=== PATIENT | female | born 1970 | race Caucasian/White ===

== ENCOUNTER → 2018-07-28 08:01 | Outpatient (CLI) | payer OTHER, SELFPAY ==
--- NOTE | 2018-07-28 08:08 | BI_ITS ---
MAMMOGRAPHY - BILATERAL SCREENING 3-D JAVY SYNTHESIS REASON FOR EXAM: Female, 48 years old. Bilateral Screening 3-D tomosynthesis PERTINENT HISTORY: Asymptomatic Family breast carcinoma, maternal grandmother? TECHNIQUE: 2-D mammograms and 3-D Javy synthesis of the breast (s) were performed. CAD was performed. COMPARISON: None available. FINDINGS: The breast composition is composed of scattered fibroglandular density. Scattered benign calcifications are seen. No dense spiculated dominant masses or suspicious microcalcification cluster are identified. No new architectural distortion, asymmetric density, discretion skin thickening or nipple retraction identified. Numerous axillary lymph nodes are seen bilaterally which are difficult to evaluate as many are superimposed upon one another. There has been no significant change since the most recent prior study. BI/SCREENING MAMM (CAD), BILAT IMPRESSION: No mammographic sign of malignancy. Routine yearly mammograms recommended. Numerous axillary lymph nodes are seen bilaterally but are difficult to evaluate as there is superimposed upon one another without definitive finding of adenopathy identified. Clinical correlation recommended. ASSESSMENT CATEGORY: BIRADS Category 2: Benign. A letter regarding these results will be sent to the patient by the facility within 30 days. FOLLOW UP RECOMMENDATION: Yearly follow up mammogram recommended. (A) Negative mammographic results should not deter biopsy as a palpable lesion should be followed based on clinical grounds and biopsy performed if clinically persistent for 3 months or increasing size. Approximately 10% of breast cancers are not detected by mammography. A normal mammogram should not delay biopsy of a clinically suspicious abnormality. Dense breast tissue may obscure neoplasm. Electronically Signed: Kenny Montero, at 17:38 EDT Tel , Service support ,
== END ==
PROVIDERS: Family Provider Internal Medicine; PCP Internal Medicine; Referring Provider Obstetrics & Gynecology; Visit Provider Obstetrics & Gynecology
DX: Z12.31 Encounter for screening mammogram for malignant neoplasm of breast (principal)
CPT/HCPCS: 77063; 77067

== ENCOUNTER → 2020-12-07 | Outpatient (CLI) | payer OTHER, SELFPAY ==
[2020-12-11 11:33] LABS: HPV APTIMA, High Risk Negative (Negative)
== END | disposition home or self-care (01) ==
LOC: LABSPEC 16:18
PROVIDERS: PCP Internal Medicine; Visit Provider Obstetrics & Gynecology
DX: Z12.4 Encounter for screening for malignant neoplasm of cervix (principal)
CPT/HCPCS: 87624; 88175; G0145

== ENCOUNTER → 2020-12-15 17:00 | Outpatient (CLI) | payer OTHER, SELFPAY ==
--- NOTE | 2020-12-15 16:09 | BI_ITS ---
MAMMOGRAPHY - BILATERAL SCREENING REASON FOR EXAM: Female, 50 years old. Routine annual screening examination. PERTINENT HISTORY: Grandmother with breast cancer. TECHNIQUE: Digital bilateral breast javy (3D mammographic acquisition) in the CC and MLO projections. 2-D mediolateral oblique (MLO) and craniocaudad (CC) views of both breasts were obtained. CAD: Full Field Digital Mammography with Computer Added Detection was performed. COMPARISON: Comparison is made with prior study dated 07/28/2018. FINDINGS: Breast Composition: There are scattered areas of fibroglandular density. There are no dominant masses or suspicious calcifications. Stable benign-appearing bilateral axillary lymph nodes. No other significant abnormalities are identified. There has been no significant change since the prior study. BI/SCRN MAMM (CAD)W/JAVY BILAT IMPRESSION: Stable bilateral screening mammogram. Yearly follow-up mammogram recommended. (A) ASSESSMENT CATEGORY: BIRADS Category 2: Benign. A letter regarding these results will be sent to the patient by the facility within 30 days. Approximately 10% of breast cancers are not detected by mammography. A normal mammogram should not delay biopsy of a clinically suspicious abnormality. [id number] Electronically Signed: Oni Mendoza MD at 8:32 EST , Service support ,
== END ==
PROVIDERS: PCP Internal Medicine; Referring Provider Obstetrics & Gynecology; Visit Provider Obstetrics & Gynecology
DX: Z12.31 Encounter for screening mammogram for malignant neoplasm of breast (principal)
CPT/HCPCS: 77063; 77067

== ENCOUNTER 2023-10-12 14:36 | Emergency (ER) | payer OTHER, SELFPAY ==
[2023-10-12 14:36] VITALS: BP 130/62; PULSE 51; RESP 16; TEMP 36.3; O2SAT 100; BMI 27.8
--- NOTE | 2023-10-12 14:39 | EKG12_ITS ---
Test Reason : CHEST PAIN Blood Pressure : / mmHG Vent. Rate : 054 BPM Atrial Rate : 054 BPM P-R Int : 170 ms QRS Dur : 074 ms QT Int : 456 ms P-R-T Axes : 040 055 081 degrees QTc Int : 432 ms Sinus bradycardia Nonspecific ST and T wave abnormality Abnormal ECG Confirmed by ISAAC GARCIA, NIKITA ([id number]), health editor FIORDALIZA KAYE ([id number]) on 10/13/2023 2:06:36 PM Referred By: ADRI Confirmed By:NIKITA GRAY MD
--- NOTE | 2023-10-12 14:42 | ED.RN ---
NO OLD EKG
[2023-10-12 15:02] VITALS: BP 121/77; PULSE 57; RESP 18; O2SAT 98
--- NOTE | 2023-10-12 15:05 | ED.VIS.CHEST ---
HPI History of Present Illness Chief Complaint: Chest Pain Informant: patient Onset/Context/Timing Onset: Today Narrative Narrative: Patient presents secondary to back and chest pain that lasted approximately 20 minutes. 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 She felt her heart was racing. She states she went downstairs to the office where they noted that she looked pale. She called her to come pick her up and states symptoms seem to resolve while she was waiting for him. She states she was recently told she might have some problems with her thyroid but they are not starting any medications at this time. PFSH PFS Home Medications cholecalciferol (vitamin D3) 50 mcg (2,000 unit) capsule (Vitamin D3) 50 mcg PO DAILY 10/12/23 [History Last Taken 10/11/23] Allergy/AdvReac Type Severity Reaction Status Date / Time Penicillins Allergy Mild Vomiting Verified 10/12/23 14:38 Surgical History History of appendectomy Social History Smoking Status: Never smoker ROS ROS ED Constitutional Constitutional ED: Denies chills or fever(s) Eyes Eyes: Denies discharge from eye(s) ENT ENT ED: Denies discharge from eye(s), rhinorrhea or sore throat Cardiovascular Cardiovascular: Reports chest pain, palpitations and racing heartbeat Respiratory/Chest Respiratory/Chest: Denies cough or dyspnea Gastrointestinal Gastrointestinal: Denies abdominal pain, nausea or vomiting Genitourinary Genitourinary ED: Denies dysuria Musculoskeletal Musculoskeletal: Denies back pain or extremity pain Integumentary Denies Abrasions or rash Neurologic Neurologic: Denies headache(s) or weakness Psychiatric Psychiatric: Denies anxiety or depression Allergic/Immunologic Allergic/Immunologic ED: Denies lip swelling or urticaria EXAM Physical Exam Const Vital Signs: 10/12/23 14:36 10/12/23 15:00 10/12/23 15:02 Temperature 97.3 F L Temperature Source Temporal Pulse Rate 51 L 57 L Respiratory Rate 16 18 Respiratory Effort Normal Non-Labored Blood Pressure 130/62 H 121/77 H Blood Pressure Mean 84 91 Pulse Ox 100 98 Oxygen Delivery Method Room Air Room Air Positive well nourished and well developed General Appearance ED: well developed HEENT Reports moist mucous membranes Eyes EOMs intact bilaterally Chest Wall inspection of chest normal and palpation of chest normal Resp normal respiratory effort and clear to auscultation bilaterally Cardio regular rhythm Rate: bradycardia GI soft to palpation and non-tender Extremity normal to inspection Neuro oriented x3 and no sensory deficits noted Motor Exam: strength 5/5 throughout Psych mental status grossly normal Skin no rashes or lesions noted MDM MDM MDM Narrative Medical decision making narrative: 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 IV line established. EKG obtained to evaluate for cardiac arrhythmia/ischemia. Chest x-ray obtained to evaluate for acute lung pathology, cardiac size, or mediastinal abnormality. Labwork obtained to evaluate for leukocytosis, anemia, and electrolyte derangement. History & Record Review Discussion w/independent historian: Patient and Family Lab Data Attestation: I reviewed the patient's lab results. Labs: Laboratory Results - last 24 hr 10/12/23 10/12/23 15:07 17:20 WBC 9.0 RBC 4.23 Hgb 13.1 Hct 39.5 MCV 93.4 MCH 31.0 MCHC 33.2 RDW Std Deviation 44.8 H RDW Coeff of Margaret 13.1 Plt Count 380 MPV 9.0 Immature Gran % (Auto) 0.400 Neut % (Auto) 78.0 H Lymph % (Auto) 13.8 L Gonzales % (Auto) 6.1 Eos % (Auto) 1.3 Baso % (Auto) 0.4 Absolute Neuts (auto) 7.0 Absolute Lymphs (auto) 1.24 Nucleated RBC % 0 D-Dimer Quant (PE/DVT) 0.50 H Sodium 142 Potassium 3.4 L Chloride 111 H Carbon Dioxide 25.0 Anion Gap 6 BUN 17 Creatinine 0.94 Estim Creat Clear Calc 58.57 Est GFR (MDRD) Af Amer 80 Est GFR (MDRD) Non-Af 66 BUN/Creatinine Ratio 18.0 Glucose 146 H Calcium 8.7 Total Bilirubin 0.60 Direct Bilirubin 0.16 AST 68 H ALT 50 Alkaline Phosphatase 121 H Troponin I High Sens 26 23 Total Protein 8.0 Albumin 4.3 Globulin 3.7 Lipase 30 TSH 4.40 H Thyroxine (T4) 8.0 Total T3 1.09 Radiography Chest X-Ray - ED: 1 View, Read by ED Physician, Normal, Heart, Lungs and Mediastinum Diagnostic Testing: Clinical Impression(s) from Imaging Studies Chest X-Ray 10/12/23 15:35 IMPRESSION: No radiographic evidence of acute cardiopulmonary disease. Electronically Signed: Jer Gutierrez MD at 16:52 EST Reading Location ID and State: [address] [place] [address] Tel , Service support , EKG Initial EKG: Attestation: I personally reviewed and interpreted this EKG as follows: Interpretation: Sinus Bradycardia (Sinus bradycardia 54 bpm. No acute ischemia.) Treatment and Re-Evaluation :: CBC was normal white count 9.0 with a hemoglobin of 13.1. Chemistry studies reveal slightly low potassium at 3.4. Renal function is normal. Glucose is 146. Initial troponin is 26 with a 2-hour repeat troponin of 23. D-dimer is normal at 0.5. TSH is slightly elevated at 4.4, however T4 is normal and T3 is normal. Patient has had no recurrent symptoms here. I advised her that with 2 normal troponin values I do feel comfortable sending her home. I did ask her to return if she has recurrent symptoms so we can try to catch the palpitations while it is happening. Discharge Plan Triage Chief Complaint: Chest Pain ED Provider: Kathrin Sampson Dx/Rx/DC Orders Clinical Impression: Palpitations, Chest pain Instructions: ED Chest Pain, Uncertain Cause, ED Palpitations Prescriptions: No Action cholecalciferol (vitamin D3) [Vitamin D3] 50 mcg (2,000 unit) capsule 50 mcg PO DAILY Primary Care Provider: Deann Lowery Referrals: Fartun Galeas DO [Med Staff - Journeyman Sheet Metal Worker] - eDann Lowery PA [Primary Care Provider] - 1-2 Weeks Disposition Disposition: Home, Self Care
[2023-10-12 15:22] LABS: Absolute Lymphocyte Count 1.24 X10^3/uL (0.83-4.51); Basophil# 0.04 X10^3/uL; Basophil% 0.4 % (0-1); Eosinophil# 0.12 X10^3/uL; Eosinophils% 1.3 % (0-5); Hematocrit 39.5 % (37-47); Hemoglobin 13.1 g/dL (12.0-15.0); Lymphocyte # 1.24 X10^3/ul (0.83-4.51); Lymphocyte % 13.8 % (19-41); Mean Corp Hgb Conc 33.2 g/dL (32-36); Mean Corpuscular Volume 93.4 fL (81-99); Monocyte# 0.55 X10^3/uL; Monocyte% 6.1 % (0-10); NRBC Flagged by Analyzer 0 % (0-5); Neutrophil # 7.02 X10^3/uL (2.7-7.7); Platelet Count 380 K/mm3 (150-450); RBC Distribution Width CV 13.1 % (11.6-14.6); RBC Distribution Width SD 44.8 fl (35.1-43.9); Red Blood Count 4.23 M/mm3 (4.2-5.4)
--- NOTE | 2023-10-12 15:35 | RAD_ITS ---
EXAM: XR CHEST, 1 VIEW CLINICAL INDICATION: chest pain TECHNIQUE: Frontal view of the chest. COMPARISON: No relevant prior studies available. FINDINGS: LUNGS AND PLEURAL SPACES: Unremarkable. No consolidation or edema. No pneumothorax. No effusion. HEART: Unremarkable. Cardiac silhouette not enlarged. MEDIASTINUM: Central airways and mediastinal contour are unremarkable. BONES/JOINTS: Unremarkable. No acute fracture. SOFT TISSUES: Unremarkable. RAD/Chest 1 View (Portable) IMPRESSION: No radiographic evidence of acute cardiopulmonary disease. Electronically Signed: Jer Gutierrez MD at 16:52 EST ,
[2023-10-12 15:47] LABS: AST(SGOT) 68 U/L (15-37); Alanine Aminotransfer ALT/SGPT 50 U/L (13-56); Albumin, Serum 4.3 g/dL (3.2-5.0); Alkaline Phosphatase 121 U/L (45-117); Anion Gap 6 (5-15); BUN 17 mg/dL (7-18); Bilirubin, Direct 0.16 mg/dL (0.00-0.30); Calcium,Total 8.7 mg/dL (8.5-10.1); Chloride 111 mmol/L (98-107); Creatinine, Serum 0.94 mg/dL (0.55-1.02); EST Glomerular Filtration Rate 66 mL/min (>60); Est Glom Filt Rate - Afr Amer 80 mL/min (>60); Estimated Creatinine Clearance 58.57 ml/min; Globulin 3.7 g/dL (2.2-4.2); Glucose 146 mg/dL (74-106); Lipase 30 U/L (13-75); Potassium 3.4 mmol/L (3.5-5.1); Sodium Level 142 mmol/L (136-145); Troponin-I HS (w/2H Reflex) 26 pg/mL (3.0-54.0)
[2023-10-12 16:02] LABS: T3 Total - Triiodothyronine 1.09 ng/mL (0.6-1.81)
[2023-10-12 17:14] LABS: Reflex Troponin-HS? (from REC) Y
[2023-10-12 17:46] LABS: Troponin-I HS 23 pg/mL (3.0-54.0)
== END 2023-10-12 18:10 | disposition home or self-care (01) ==
PROVIDERS: Emergency Provider Emergency Medicine; PCP Physician Assistant; Visit Provider Emergency Medicine
DX: R07.9 Chest pain, unspecified (principal); R00.2 Palpitations
CPT/HCPCS: 71045; 80048; 80076; 83690; 84436; 84443; 84480; 84484; 85025; 85379; 93005; 99283; A4216